=== PATIENT | male | born 1975 | race Caucasian/White ===

== ENCOUNTER 2023-06-17 09:21 | Outpatient (AMB) | payer OTHER, SELFPAY ==
[2023-06-17 09:28] VITALS: BP 132/82; PULSE 86; O2SAT 98; BMI 28.6
--- NOTE | 2023-06-17 09:28 | A.OFFPC_ITS ---
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: No Accompanied by: Self / Same As Patient Allergies amoxicillin Adverse Reaction (Unknown, Verified 06/17/23 09:49) Diarrhea Medication List - Last Reconciled 06/17/23 by Frantz Balderas PA-C albuterol sulfate 90 mcg/actuation 1 inh inhalation QID 30 days amitriptyline 75 mg (1.5 x 50 mg) PO DAILY 90 days atenolol 25 mg PO DAILY 90 days beclomethasone dipropionate 40 mcg/actuation (Qvar RediHaler) 1 inh inhalation BID 30 days blood sugar diagnostic (Bag of IceTouch Ultra Test strips) test once daily blood-glucose meter (Bag of IceTouch Ultra2 Meter) test once daily clobetasol 0.05% grams topical fluticasone propionate 50 mcg/actuation (Flonase Allergy Relief) 1 spray intranasal DAILY lancets ([email or web address] UltraSoft 2 Lancet) test once daily lorazepam 1 mg PO BID 30 days metformin 1,000 mg PO BID 90 days omeprazole 40 mg PO DAILY tramadol 50 mg PO Q6H PRN 3 days Tobacco use date assessed: 06/17/23 Dental Screening Dental Screen Date: 06/17/23 Did you have a dental visit in the last 12 months?: Yes Did you have a dental problem in the last 6 months where you did not have access to dental care?: No Was dental information given to patient?: Patient has dentist HPI Annual Exam 2 HPI0 Details Patient is a 48-year-old male here today for a routine annual physical.? Patient has a past medical history significant for stage II colon cancer (in remission) , generalized anxiety disorder, type 2 diabetes, asthma and SVT. .. Stage II colon cancer:? Is followed by oncologist at [facility], has his CEA is followed.? Has not had any recurrent disease. ?Did have colonoscopy 2020 and needed repeat in 3-5 years. Patient's most recent CT showing incidental note of a pulmonary nodule that has increased in size. PET scan was non concerning. No concerns for recurrent malignancy. Will continue his cancer surveillance with Oncology at [facility]. .. Type 2 diabetes:? Today's A1c at 8.1. He reports he has not been compliant with the use of his metformin. He is interested in 0 sent back to help with his diabetes in may be able to have better compliance. .. Acne rosacea: Followed by wholesaler and was on doxycycline which was helpful, when taken off of doxycycline his acne rosacea flared up and would like to try topical treatment. .. KATHIA:? Patient reports his anxiety has been well controlled with p.r.n. use of lorazepam. ? Also has a stressful job.? Not interested in speaking with a mental health therapist at this time. . Asthma:? Patient reports his asthma has been fairly well controlled on current maintenance inhaler, seldomly has to use his albuterol inhaler. Vaccines: Up-to-date with COVID vaccine, up-to-date with pneumonia vaccine, tetanus vaccine. Considering flu vaccine [facility] Medical History Pre-operative examination Sleep apnea Surgical History History of surgery History of colostomy Family History Father Prostate cancer Parkinson disease Lung cancer Mother Breast cancer Sister Asthma BRCA positive Social History (Updated 06/17/23 @ 09:56 by Frantz Balderas PA-C) Housing: House Alcohol intake: current Alcohol intake frequency: 0-2 drinks per day Alcohol type: beer Patient Tobacco Use Status: Never used Tobacco e-Cigarette/Vaping Use: Never Used Second Hand Smoke Exposure: No service: No Current occupational status: employed Current occupation: [employer] Current occupational exposures/hazards: No Cognitive needs: No Hearing needs: No Vision needs: Yes Questionnaire PHQ-9 Over the last 2 weeks, how often have you been bothered by any of the following problems? 1. Little interest or pleasure in doing things: not at all 2. Feeling down, depressed, or hopeless: not at all 3. Trouble falling or staying asleep, or sleeping too much: not at all 4. Feeling tired or having little energy: not at all 5. Poor appetite or overeating: not at all 6. Feeling bad about yourself - or that you are a failure or have let yourself or your family down: not at all 7. Trouble concentrating on things, such as reading the newspaper or watching television: not at all 8. Moving or speaking so slowly that other people could have noticed. Or the opposite - being so fidgety or restless that you have been moving around a lot more than usual: not at all 9. Thoughts that you would be better off or of hurting yourself in some way: not at all Total score: 0 Depression Screening Interpretation: Negative Depression Screening Done: Yes [id number] - PHQ-9 Billing: Yes Source: Developed by Drs. Anuj Tapia, Nae Bain, Yousif Barber and colleagues, with an educational erin from [employer]. Thrive Questionnaire Date Thrive assessed: 04/24/22 I am a: Patient What is your living situation today?: I have a steady place to live Within the past 12 months, did the food you bought not last and you didn't have the money to get more?: Never true Within the past 12 months, did you worry whether your food would run out before you got money to buy more?: Never true Do you have trouble paying for medicines?: No Do you have trouble getting transportation to medical appointments?: No Do you have trouble paying your heating and electricity bill?: No Do you have trouble taking care of your child, family member or friend?: No Do you have trouble with day-to-day activities such as bathing, preparing meals, shopping, managing finances, etc.?: No Are you currently unemployed and looking for a job?: No Are you interested in more education?: No Please select the resources that you would like help with: None Currently or been in a relationship where the following occur: no concerns reported AUDIT C Alcohol Use Questionnaire (AUDIT-C) 1. How often do you have a drink containing alcohol?: Never 3. How often do you have six or more drinks on one occasion?: Never Total Score: 0 KATHIA-7 AMB Questionnaire KATHIA-7 Date KATHIA - 7 assessed: 06/17/23 Feeling nervous, anxious, or on edge: 0 = Not at all Not being able to stop or control worryin = Not at all Worrying too much about different things: 0 = Not at all Trouble relaxin = Not at all Being so restless that it is hard to sit still: 0 = Not at all Becoming easily annoyed or irritable: 0 = Not at all Feeling afraid as if something awful might happen: 0 = Not at all Total KATHIA-7 score (0-4 normal; 5-9 mild; 10-14 moderate; 15-21 severe): 0 Source: Developed by Drs. Anuj Tapia, Nae Bain, Yousif Barber and colleagues, with an educational erin from [employer]. KATHIA-7 Assessment Billing KATHIA-7 Assessment Tool: KATHIA-7 Assessment 29610 ACT Questionnaire In the past 4 weeks, how much of the time did your asthma keep you from getting as much done at work, school or at home?: None of the time During the past 4 weeks, how often have you had shortness of breath?: Not at all During the past 4 weeks, how often did your asthma symptoms wake you up at night or earlier than usual in the morning?: Not at all During the past 4 weeks, how often have you had to use your rescue inhaler or nebulizer medication?: Not at all How would you rate your asthma control during the past 4 weeks?: Completely controlled ACT Interpretation: Negative Score: 25 Review of Systems Const Denies body aches, Denies chills, Denies excessive sweating, Denies fatigue, Denies fever(s) and Denies headache(s) Eyes Denies blurry vision ENT Denies dysphagia, Denies vertigo, Denies dizziness, Denies headache(s), Denies hearing loss and Denies tinnitus Card Denies chest pain, Denies chest pain with activity, Denies syncope, Denies irregular heart rhythm and Denies dyspnea Resp Denies chest congestion, Denies cough, Denies hemoptysis, Denies dyspnea and Denies wheezing GI Denies abdominal pain, Denies melena, Denies hematochezia, Denies coffee ground emesis, Denies dysphagia, Denies diarrhea, Denies nausea and Denies vomiting Denies difficulty urinating, Denies dysuria, Denies urinary frequency, Denies urinary hesitancy and Denies urinary urgency Musc Denies arthralgias, Denies limited range of motion, Denies muscle cramps and Denies muscle weakness Skin/Breast Denies rash and Denies skin ulcer Neuro Denies Abnormal speech present, Denies confusion, Denies vertigo, Denies dizziness, Denies syncope, Denies headache(s), Denies memory loss and Denies seizure-like activity Psych Denies anxiety, Denies confusion, Denies depression, Denies memory loss, Denies panic attacks and Denies paranoia Endo Denies excessive sweating, Denies fatigue, Denies flushing, Denies polydipsia and Denies polyuria Aller/Immun Denies wheezing Physical exam (Primary Care) Vital Signs: Last Vital Signs Pulse 86 06/17/23 09:28 BP 132/82 06/17/23 09:28 Pulse Ox 98 06/17/23 09:28 Oxygen Delivery Method Room Air 06/17/23 09:28 BMI result Body Mass Index 28.6 Tobacco/Smoking Status: Tobacco use Status Tobacco use date assessed 06/17/23 06/17/23 09:32 Patient Tobacco Use Status Never used Tobacco 06/17/23 09:56 Tobacco use type 04/24/22 08:35 e-Cigarette/Vaping Use Never Used 06/17/23 09:56 PHQ-9: PHQ-9 Score PHQ-9: Total score 0 06/17/23 10:20 Depression Screening Interpretation: Negative Thrive Assessment: Date of Thrive Assessment Date Thrive assessed 04/24/22 06/17/23 09:32 Currently or been in a relationship where the following occur: no concerns reported Const General: cooperative, comfortable, no acute distress, alert and awake; No confusion Orientation/consciousness: oriented to person, oriented to place, patient oriented x3 and No confusion HENMD Head: Yes normocephalic Head images: 2 1. NOTED ACNE AND SOME ERYTHEMA OVER CHEEKS Ears: external ears normal and TM's normal bilaterally Face and sinus: No sinus tenderness Mouth: Normal oral and palatal mucosa present and tongue normal Teeth and gingiva: dentition normal and gingiva normal Throat: Yes posterior oropharynx normal, Yes tonsils normal and Yes uvula midline Eyes Conjunctivae: conjunctivae normal Sclerae: sclerae normal Pupils: Equal, round and reactive pupils present EOM: EOMs intact bilaterally Direct Ophthalmoscopy: No no photophobia Neck Neck: Yes no lymphadenopathy, No tender and Yes no JVD Thyroid: Thyroid normal Carotids: no bruits Chest Chest palpation & inspection: no tenderness Resp Effort & Inspection: normal respiratory effort, no audible wheezes, not labored and no stridor Auscultation: no crackles, no rales, no rhonchi and no wheezes Cardio Jugular venous distension: no JVD Rate: regular rate, not bradycardic and not tachycardic Rhythm: regular rhythm Bruits: no carotid bruits Peripheral pulses: Peripheral pulses 2+ throughout GI Inspection: Yes normal to inspection, No abdominal wall ecchymosis and No visible herniation Palpation (GI): Soft to palpation, nontender, no guarding, not rigid and No hepatosplenomegaly present Auscultation: normoactive bowel sounds General: Yes no CVA tenderness Back/Spine/Pelvis Back: no CVA tenderness and No back tenderness Cervical Spine: cervical ROM normal Thoracic/Lumbar Spine: thoracic and lumbar spine normal to inspection, straight leg raise negative bilaterally, No thoraco-lumbar ROM limited and No lumbar spinal tenderness Skin Lesions: no lesions Rashes: no rashes Wounds: no wounds Neuro General: oriented to person, oriented to place, patient oriented x3, CN's II-XI intact bilaterally and No confusion Cranial nerves: Yes Equal, round and reactive pupils present and Yes Normal accommodation reflex present Cognition (Neuro): normal cognition Speech: No Abnormal speech present Gait exam (Neuro): Normal gait present Motor exam (neuro): 5/5 motor strength present throughout Extrem Right upper extremity: full ROM; no cyanosis Left upper extremity: full ROM; no cyanosis Right lower extremity: no edema Left lower extremity: no edema Psych Appearance: grossly normal Mental Status: mental status grossly normal Affect: normal affect Attitude: cooperative Thought process: Normal thought process present Results AMB Hemoglobin A1c 2 AMB Hemoglobin A1c 8.1 % Last Edit by Natalie Saldivar on 06/17/23 10:20 Results Reviewed Results Reviewed: Laboratory Last Values Hgb A1c (Clinic) 8.1 % (4.0-6.0) H 06/17/23 10:19 Assessment and Plan Assessment & Plan (1) Annual physical exam: Code(s): Z00.00 - Encounter for general adult medical examination without abnormal findings (2) Type 2 diabetes mellitus: Code(s): E11.9 - Type 2 diabetes mellitus without complications Qualifiers: Diabetes mellitus complication status: without complication Diabetes mellitus jail insulin use: with watcher [employer] long goods use Qualified Code(s): E11.9 - Type 2 diabetes mellitus without complications; Z79.4 - long term care phlebotomist (current) use of insulin Plan: Patient's type 2 diabetes suboptimally controlled today's A1c at 8.1. He reports he is not compliant with taking metformin. He is interested in trying Ozempic for better compliance and Alessandro benefit of weight loss. Goal A1c to be below 7.0 (3) H/O colon cancer, stage II: Code(s): Z85.038 - Personal history of other malignant neoplasm of large intestine Plan: Patient followed by Oncology And currently is in remission. Of note recent CT showing pulmonary nodule that is increased in size. Patient's most recent PET scan did show some uptake in a pulmonary nodule though was thought to be inflammatory and not malignant. (4) KATHIA (generalized anxiety disorder): Code(s): F41.1 - Generalized anxiety disorder Plan: Patient's anxiety has been fairly well controlled with current dose of TCA and p.r.n. use lorazepam (5) Asthma: Code(s): J45.909 - Unspecified asthma, uncomplicated Qualifiers: Asthma complication type: uncomplicated Asthma persistence: i ntermittent Asthma severity: mild Qualified Code(s): J45.20 - Mild intermittent asthma, uncomplicated Plan: Patient reports his asthma has been well controlled as of late. Has not had to use his QVAR inhaler much. Does use his albuterol inhaler on a p.r.n. basis for cough and wheeze. He otherwise denies any nighttime awakenings with asthma symptoms or recent asthma exacerbations. (6) MDD (major depressive disorder), recurrent episode, mild: Code(s): F33.0 - Major depressive disorder, recurrent, mild Plan: Depression seems to be in remission. PHQ-9 score negative. Continues on mental health medications and feels stable from a mental health point of view. Orders: Orders 2 AMB Hemoglobin A1c 06/17/23 E11.9 - Type 2 diabetes mellitus without complications Lipid Panel 06/17/23 E11.9 - Type 2 diabetes mellitus without complications, Z79.4 - [facility]PC (current) use of insulin Microalbumin, Random (w Creat) 06/17/23 E11.9 - Type 2 diabetes mellitus without complications, Z79.4 - long term care phlebotomist (current) use of insulin Medications: New 2 metronidazole 1% (Metrogel) 1 appl topical DAILY 30 days 60 grams 1RF L71.9 - Rosacea, unspecified semaglutide (Ozempic) for 4 weeks 0.25 mg (0.368 mL) subcut QWEEK 4 weeks 3 mL 3RF E11.9 - Type 2 diabetes mellitus without complications, Z79.4 - long term care phlebotomist (current) use of insulin Refilled 2 tramadol 50 mg PO Q6H 3 days PRN 12 tabs 0RF pain M54.50 - Low back pain, unspecified lorazepam 1 mg PO BID 30 days 60 tabs 3RF anxiety F41.1 - Generalized anxiety disorder Coding Level of Care Code Est Pt Prev Care 40-64y(62933) Diagnoses Annual physical exam Z00.00 Type 2 diabetes mellitus without complication, with long-term current use of insulin E11.9; Z79.4 Diabetes mellitus complication status: without complication Diabetes mellitus watcher [employer] goods insulin use: with watcher automat long goods use H/O colon cancer, stage II Z85.038 KATHIA (generalized anxiety disorder) F41.1 Mild intermittent asthma without complication J45.20 Asthma complication type: uncomplicated Asthma persistence: intermittent Asthma severity: mild MDD (major depressive disorder), recurrent episode, mild F33.0 Additional Codes KATHIA-7 Assessment Billing - KATHIA-7 Assessment Tool: KATHIA-7 Assessment [id number] ([id number])
== END 2023-06-17 10:17 | disposition home or self-care (01) ==
PROVIDERS: Visit Provider Physician Assistant
DX: E11.9 Type 2 diabetes mellitus without complications (principal)
CPT/HCPCS: 83036; 99396

== ENCOUNTER 2023-11-27 15:10 | Outpatient (AMB) | payer OTHER, SELFPAY ==
--- NOTE | 2023-11-27 15:32 | A.OFFPC_ITS ---
Vital Signs 11/27/23 15:43 Height 6 ft 3 in Weight 222 lb 3 oz BMI 27.8 BP 132/94 H Blood Pressure Location Lt brachial Position Sitting Pulse 90 Pulse Source Pulse Oximeter Pulse Oximetry (%) 98 Oxygen Delivery Method Room Air Intake Visit Reasons: DMII follow up Intake Note: Pt needs FMLA form to be complete before surgery. 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 Accompanied by: Self / Same As Patient Allergies amoxicillin Adverse Reaction (Unknown, Verified 11/27/23 15:55) Diarrhea Medication List - Last Reconciled 11/27/23 by Frantz Balderas PA-C albuterol sulfate 90 mcg/actuation 1 inh inhalation QID 30 days amitriptyline 75 mg (1.5 x 50 mg) PO DAILY 90 days atenolol 25 mg PO DAILY 90 days beclomethasone dipropionate 40 mcg/actuation (Qvar RediHaler) 1 inh inhalation BID 30 days blood sugar diagnostic (ScandlinesTouch Ultra Test strips) test once daily blood-glucose meter (ScandlinesTouch Ultra2 Meter) test once daily clobetasol 0.05% grams topical gabapentin 300 mg PO TID lancets ([employer] UltraSoft 2 Lancet) test once daily lorazepam 1 mg PO BID 30 days metronidazole 1% (Metrogel) 1 appl topical DAILY 30 days omeprazole 40 mg PO DAILY semaglutide (Ozempic) 0.5 mg (0.736 mL) subcut QWEEK 4 weeks tamsulosin 0.4 mg PO DAILY tramadol 50 mg PO Q6H PRN 3 days Tobacco use date assessed: 11/27/23 Dental Screening Dental Screen Date: 11/27/23 Did you have a dental visit in the last 12 months?: Yes Did you have a dental problem in the last 6 months where you did not have access to dental care?: No Was dental information given to patient?: Patient has dentist HPI DMII follow up HPI Details Patient is a 48-year-old male here today for a follow-up visit.? Patient has a past medical history significant for metastatic colon cancer, , generalized anxiety disorder, type 2 diabetes, asthma and SVT. .. Metastatic colon cancer:? Is followed by oncologist at [facility], has his CEA is followed.? ?Did have colonoscopy 2020 and needed repeat in 3-5 years. Patient's most recent CT showing incidental note of a pulmonary nodule that has increased in size. PET scan did show some uptake in the right lower lung nodule. --> Underwent biopsy in September of 2023 a nd did show recurrence of colon cancer in the right lower lung lobe. Is due for lung resection surgery on 12/05/2023. .. Type 2 diabetes:? Was started on Ozempic and has been able to lose weight. Has discontinue metformin due to compliance issues. A1c much improved at 6.8 from 8.1.. .. .. KATHIA:? Patient reports his anxiety has been well controlled with p.r.n. use of lorazepam. ? Also has a stressful job.? Not interested in speaking with a mental health therapist at this time. . Asthma:? Patient reports his asthma has been fairly well controlled on current maintenance inhaler, seldomly has to use his albuterol inhaler. [facility] Medical History Pre-operative examination Sleep apnea Surgical History History of surgery History of colostomy Family History Father Prostate cancer Parkinson disease Lung cancer Mother Breast cancer Sister Asthma BRCA positive Social History Housing: House Alcohol intake: current Alcohol intake frequency: 0-2 drinks per day Alcohol type: beer Patient Tobacco Use Status: Never used Tobacco e-Cigarette/Vaping Use: Never Used Second Hand Smoke Exposure: No service: No Current occupational status: employed Current occupation: [employer] Current occupational exposures/hazards: No Cognitive needs: No Hearing needs: No Vision needs: Yes Questionnaire PHQ-9 Over the last 2 weeks, how often have you been bothered by any of the following problems? 94541 - PHQ-9 Billing: Patient declined-do not bill Source: Developed by Drs. Anuj Tapia, Nae Bain, Yousif Barber and colleagues, with an educational erin from [employer]. Thrive Questionnaire Date Thrive assessed: 11/27/23 I am a: Patient What is your living situation today?: I have a steady place to live Within the past 12 months, did the food you bought not last and you didn't have the money to get more?: Never true Within the past 12 months, did you worry whether your food would run out before you got money to buy more?: Never true Do you have trouble paying for medicines?: No Do you have trouble getting transportation to medical appointments?: No Do you have trouble paying your heating and electricity bill?: No Do you have trouble taking care of your child, family member or friend?: No Do you have trouble with day-to-day activities such as bathing, preparing meals, shopping, managing finances, etc.?: No Are you currently unemployed and looking for a job?: No Are you interested in more education?: No Please select the resources that you would like help with: None Currently or been in a relationship where the following occur: no concerns reported THRIVE Score: 0 AUDIT C Alcohol Use Questionnaire (AUDIT-C) 1. How often do you have a drink containing alcohol?: Monthly or less 2. How many drinks containing alcohol do you have on a typical day when you are drinking?: 1 or 2 3. How often do you have six or more drinks on one occasion?: Never Total Score: 1 KATHIA-7 AMB Questionnaire KATHIA-7 Date KATHIA - 7 assessed: 11/27/23 Source: Developed by Drs. Anuj Tapia, Nae Bain, Yousif Barber and colleagues, with an educational erin from [employer]. KATHIA-7 Assessment Billing KATHIA-7 Assessment Tool: pt declined-do not bill ACT Questionnaire In the past 4 weeks, how much of the time did your asthma keep you from getting as much done at work, school or at home?: None of the time During the past 4 weeks, how often have you had shortness of breath?: Not at all During the past 4 weeks, how often did your asthma symptoms wake you up at night or earlier than usual in the morning?: Not at all During the past 4 weeks, how often have you had to use your rescue inhaler or nebulizer medication?: Not at all How would you rate your asthma control during the past 4 weeks?: Completely controlled ACT Interpretation: Negative Score: 25 Review of Systems Const Denies headache(s) Eyes Denies loss of vision ENT Denies vertigo, Denies dizziness, Denies headache(s) and Denies sore throat Card Denies chest pain, Denies leg edema and Denies lightheadedness Resp Denies cough, Denies hemoptysis and Denies wheezing GI Denies abdominal pain, Denies melena, Denies constipation, Denies diarrhea and Denies vomiting Denies dysuria, Denies urinary frequency and Denies urinary urgency Musc Denies arthralgias, Denies joint swelling, Denies numbness and Denies tingling Neuro Denies Abnormal speech present, Denies behavioral changes, Denies vertigo, Denies dizziness, Denies headache(s), Denies loss of vision, Denies memory loss, Denies numbness and Denies tingling Psych Denies anxiety, Denies behavioral changes, Denies depression, Denies memory loss and Denies panic attacks Raymon/Lymph Denies easy bleeding and Denies easy bruising Aller/Immun Denies wheezing Physical exam (Primary Care) Vital Signs: Last Vital Signs Pulse 90 11/27/23 15:43 BP 132/94 H 11/27/23 15:43 Pulse Ox 98 11/27/23 15:43 Oxygen Delivery Method Room Air 11/27/23 15:43 BMI result Body Mass Index 27.8 Tobacco/Smoking Status: Tobacco use Status Tobacco use date assessed 11/27/23 11/27/23 15:52 Patient Tobacco Use Status Never used Tobacco 11/27/23 15:32 Tobacco use type 04/24/22 08:35 e-Cigarette/Vaping Use Never Used 11/27/23 15:32 PHQ-9: PHQ-9 Score PHQ-9: Total score 0 11/27/23 15:32 Thrive Assessment: Date of Thrive Assessment Date Thrive assessed 11/27/23 11/27/23 15:32 Currently or been in a relationship where the following occur: no concerns reported Const General: healthy appearing, no acute distress, alert and awake Nutritional Appearance: well nourished Orientation/consciousness: oriented to person, oriented to place and oriented to time HENMT Ears: TM's normal bilaterally General nose exam: Normal nasal mucous membranes and turbinates present Eyes Conjunctivae: conjunctivae normal Sclerae: sclerae normal Pupils: Equal, round and reactive pupils present Neck Neck: Yes no lymphadenopathy and Yes no JVD Thyroid: Thyroid normal Carotids: no bruits Resp Effort & Inspection: normal respiratory effort and not tachypneic Auscultation: no crackles, no rales, no rhonchi and no wheezes Cardio Rate: regular rate Rhythm: regular rhythm Heart sounds: no murmurs and normal S1 and S2 GI Palpation (GI): Soft to palpation, nontender, no hepatomegaly and no splenomegaly Auscultation: normal bowel sounds Skin General skin exam: no rashes or lesions noted and dry skin Neuro General: oriented to person, oriented to place and oriented to time Cranial nerves: Yes Equal, round and reactive pupils present Speech: No Abnormal speech present Gait exam (Neuro): Normal gait present Motor exam (neuro): no tremor noted Extrem Right upper extremity: full ROM Left upper extremity: full ROM Right lower extremity: full ROM; no edema Left lower extremity: full ROM; no edema Psych Mental Status: mental status grossly normal Speech and movement: Normal speech and movement present Affect: normal affect Attitude: cooperative Thought process: Normal thought process present Results AMB Hemoglobin A1c AMB Hemoglobin A1c 6.8 % Last Edit by DA Joya on 11/27/23 15:58 Results Reviewed Results Reviewed: Laboratory Last Values Hgb A1c (Clinic) 6.8 % (4.0-6.0) H 11/27/23 15:31 Assessment and Plan Assessment & Plan (1) Recurrent carcinoma of colon: Code(s): C18.9 - Malignant neoplasm of colon, unspecified Plan: As per HPI patient had recurrence of his colon cancer with metastatic lesion noted in his right lower lung lobe. He is due for resection of his lung on 12/05/2023. (2) Type 2 diabetes mellitus: Code(s): E11.9 - Type 2 diabetes mellitus without complications Qualifiers: Diabetes mellitus production engineer insulin use: with production engineer use Diabetes mellitus complication status: without complication Qualified Code(s): E11.9 - Type 2 diabetes mellitus without complications; Z79.4 - project control manager (current) use of insulin Plan: Patient's type 2 diabetes now well controlled with the addition of Ozempic. Metformin has been discontinued due to compliance issues.. He reports he has been more physically active and adapting to better eating habits as well. Goal A1c to be below 7.0 (3) H/O colon cancer, stage II: Code(s): Z85.038 - Personal history of other malignant neoplasm of large intestine Plan: Patient followed by Oncology. Of note recent CT showing pulmonary nodule that is increased in size. 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 (4) KATHIA (generalized anxiety disorder): Code(s): F41.1 - Generalized anxiety disorder Plan: Patient's anxiety has been fairly well controlled with current dose of TCA and p.r.n. use lorazepam (5) Asthma: Code(s): J45.909 - Unspecified asthma, uncomplicated Qualifiers: Asthma severity: mild Asthma persistence: intermittent Asthma complication type: uncomplicated Qualified Code(s): J45.20 - Mild intermittent asthma, uncomplicated Plan: Patient reports his asthma has been well controlled as of late. Has not had to use his QVAR inhaler much. Does use his albuterol inhaler on a p.r.n. basis for cough and wheeze. He otherwise denies any nighttime awakenings with asthma symptoms or recent asthma exacerbations. (6) MDD (major depressive disorder), recurrent episode, mild: Code(s): F33.0 - Major depressive disorder, recurrent, mild Plan: Depression seems to be in remission. PHQ-9 score negative. Continues on mental health medications and feels stable from a mental health point of view. Orders: Orders Lipid Panel 11/27/23 E11.9 - Type 2 diabetes mellitus without complications, Z79.4 - project control manager (current) use of insulin AMB Hemoglobin A1c 11/27/23 E11.9 - Type 2 diabetes mellitus without complications, Z79.4 - project control manager (current) use of insulin Comprehensive [place]. Panel Fast 11/27/23 E11.9 - Type 2 diabetes mellitus without complications, Z79.4 - FDC (current) use of insulin Medications: Refilled atenolol 25 mg PO DAILY 90 days 90 tabs 1RF I47.1 - Supraventricular tachycardia omeprazole 40 mg PO DAILY 90 caps 2RF metronidazole 1% (Metrogel) 1 appl topical DAILY 30 days 60 grams 2RF L71.9 - Rosacea, unspecified lorazepam 1 mg PO BID 30 days 60 tabs 3RF anxiety F41.1 - Generalized anxiety disorder tramadol 50 mg PO Q6H 3 days PRN 12 tabs 0RF pain M54.50 - Low back pain, unspecified semaglutide (Ozempic) for 4 weeks 0.5 mg (0.736 mL) subcut QWEEK 4 weeks 3 mL 3RF E11.9 - Type 2 diabetes mellitus without complications, Z79.4 - FDC (current) use of insulin Patient Instructions: Goal: A1c to remain below 7.0 Barrier: Adherence to medication, adherence to healthy eating habits and physical activity Coding Level of Care Code Est Pt Level 4 (87513) Diagnoses Recurrent carcinoma of colon C18.9 Type 2 diabetes mellitus without complication, with long-term current use of insulin E11.9; Z79.4 Diabetes mellitus fdc insulin use: with production engineer use Diabetes mellitus complication status: without complication H/O colon cancer, stage II Z85.038 KATHIA (generalized anxiety disorder) F41.1 Mild intermittent asthma without complication J45.20 Asthma severity: mild Asthma persistence: intermittent Asthma complication type: uncomplicated MDD (major depressive disorder), recurrent episode, mild F33.0
[2023-11-27 15:43] VITALS: BP 132/94; PULSE 90; O2SAT 98; BMI 27.8
== END 2023-11-27 16:42 | disposition home or self-care (01) ==
PROVIDERS: PCP Physician Assistant; Visit Provider Physician Assistant
DX: E11.9 Type 2 diabetes mellitus without complications (principal); Z79.4 Long term (current) use of insulin
CPT/HCPCS: 83036; 99214

== ENCOUNTER 2024-06-01 14:56 | Outpatient (AMB) | payer OTHER, SELFPAY ==
[2024-06-01 15:09] VITALS: BP 150/90; PULSE 78; O2SAT 78; BMI 27.8
--- NOTE | 2024-06-01 15:09 | MHC.PC.OV ---
Vital Signs 06/01/24 15:09 Height 6 ft 3 in Weight 222 lb 4 oz BMI 27.8 BP 150/90 H Blood Pressure Location Lt brachial Position Sitting Pulse 78 Pulse Source Pulse Oximeter Pulse Oximetry (%) 78 L Oxygen Delivery Method Room Air Intake Visit Reasons: f/u DMII/ colon cancer Silk Top Hat Body Maker Required: No Accompanied by: Self / Same As Patient Allergies amoxicillin Adverse Reaction (Unknown, Verified 06/01/24 15:33) Diarrhea Medication List - Last Reconciled 06/01/24 by Frantz Balderas PA-C albuterol sulfate 90 mcg/actuation 1 inh inhalation QID 30 days amitriptyline 75 mg (1.5 x 50 mg) PO DAILY 90 days atenolol 25 mg PO DAILY 90 days beclomethasone dipropionate 40 mcg/actuation (Qvar RediHaler) 1 inh inhalation BID 30 days blood sugar diagnostic (Hickiesuch Ultra Test strips) test once daily blood-glucose meter (Hickiesuch Ultra2 Meter) test once daily clobetasol 0.05% grams topical gabapentin 300 mg PO TID lancets (Hickiesuch UltraSoft 2 Lancet) test once daily lorazepam 1 mg PO BID 30 days metronidazole 1% (Metrogel) 1 appl topical DAILY 30 days omeprazole 40 mg PO DAILY semaglutide (Ozempic) 0.5 mg (0.736 mL) subcut QWEEK 4 weeks tamsulosin 0.4 mg PO DAILY tramadol 50 mg PO Q6H PRN 3 days Tobacco use date assessed: 11/27/23 Dental Screening Dental Screen Date: 11/27/23 HPI f/u DMII/ colon cancer HPI Details Patient is a 49-year-old male here today for a follow-up visit.? Patient has a past medical history significant for metastatic colon cancer, , generalized anxiety disorder, type 2 diabetes, asthma and SVT. .. Metastatic colon cancer:? Is followed by oncologist at [facility], has his CEA is followed.? ?Did have colonoscopy 2020 and needed repeat in 3-5 years. Patient's most recent CT showing incidental note of a pulmonary nodule that has increased in size. PET scan did show some uptake in the right lower lung nodule. --> Underwent biopsy in September of 2023 and did show recurrence of colon cancer in the right lower lung lobe. Patient underwent lung resection surgery that was successful. Continues under active surveillance with his oncologist. .. Type 2 diabetes:? Was started on Ozempic and has been able to lose weight. Has discontinue metformin due to compliance issues. Today's A1c improved at 6.5. .. .. KATHIA:? Patient reports his anxiety has been well controlled with p.r.n. use of lorazepam. ? Also has a stressful job.? Not interested in speaking with a mental health therapist at this time. Insomnia--> patient continues to difficulty staying asleep. He does use amitriptyline at night which helps him get to sleep though willing he is able to sleep 3-4 hours in his up for the rest of the night. He was on Ambien in the past which offered him the ability to sleep throughout the night. . Asthma:? Patient reports his asthma has been fairly well controlled on current maintenance inhaler, does report recently since cooler weather he has experiencing wheezing. He would like to restart his QVAR maintenance inhaler.. . [facility] Medical History Pre-operative examination Sleep apnea Surgical History History of surgery History of colostomy Family History Father Prostate cancer Parkinson disease Lung cancer Mother Breast cancer Sister Asthma BRCA positive Social History Housing: House Alcohol intake: current Alcohol intake frequency: 0-2 drinks per day Alcohol type: beer Patient Tobacco Use Status: Never used Tobacco e-Cigarette/Vaping Use: Never Used Second Hand Smoke Exposure: No service: No Current occupational status: employed Current occupation: [employer] Current occupational exposures/hazards: No Cognitive needs: No Hearing needs: No Vision needs: Yes Questionnaire Thrive Questionnaire Date Thrive assessed: 11/27/23 AUDIT C Alcohol Use Questionnaire (AUDIT-C) 2. How many drinks containing alcohol do you have on a typical day when you are drinking?: 3 or 4 3. How often do you have six or more drinks on one occasion?: Weekly Total Score: 4 KATHIA-7 AMB Questionnaire KATHIA-7 Date KATHIA - 7 assessed: 11/27/23 Source: Developed by Drs. Anuj Tapia, Nae Bain, Yousif Barber and colleagues, with an educational erin from [employer]. Review of Systems Const Denies headache(s) Eyes Denies loss of vision ENT Denies vertigo, Denies dizziness, Denies headache(s) and Denies sore throat Card Denies chest pain, Denies leg edema and Denies lightheadedness Resp Denies cough, Denies hemoptysis and Denies wheezing GI Denies abdominal pain, Denies melena, Denies constipation, Denies diarrhea and Denies vomiting Denies dysuria, Denies urinary frequency and Denies urinary urgency Musc Denies arthralgias, Denies joint swelling, Denies numbness and Denies tingling Neuro Denies Abnormal speech present, Denies behavioral changes, Denies vertigo, Denies dizziness, Denies headache(s), Denies loss of vision, Denies memory loss, Denies numbness and Denies tingling Psych Denies anxiety, Denies behavioral changes, Denies depression, Denies memory loss and Denies panic attacks Raymon/Lymph Denies easy bleeding and Denies easy bruising Aller/Immun Denies wheezing Physical exam (Primary Care) Vital Signs: Last Vital Signs Pulse 78 06/01/24 15:09 BP 150/90 H 06/01/24 15:09 Pulse Ox 78 L 06/01/24 15:09 Oxygen Delivery Method Room Air 06/01/24 15:09 BMI result Body Mass Index 27.8 Tobacco/Smoking Status: Tobacco use Status Tobacco use date assessed 11/27/23 06/01/24 15:11 Patient Tobacco Use Status Never used Tobacco 06/01/24 15:11 Tobacco use type 04/24/22 08:35 e-Cigarette/Vaping Use Never Used 06/01/24 15:11 Thrive Assessment: Date of Thrive Assessment Date Thrive assessed 11/27/23 06/01/24 15:11 Const General: healthy appearing, no acute distress, alert and awake Nutritional Appearance: well nourished Orientation/consciousness: oriented to person, oriented to place and oriented to time HENMT Ears: TM's normal bilaterally General nose exam: Normal nasal mucous membranes and turbinates present Eyes Conjunctivae: conjunctivae normal Sclerae: sclerae normal Pupils: Equal, round and reactive pupils present Neck Neck: Yes no lymphadenopathy and Yes no JVD Thyroid: Thyroid normal Carotids: no bruits Resp Effort & Inspection: normal respiratory effort and not tachypneic Auscultation: no crackles, no rales, no rhonchi and no wheezes Cardio Rate: regular rate Rhythm: regular rhythm Heart sounds: no murmurs and normal S1 and S2 GI Palpation (GI): Soft to palpation, nontender, no hepatomegaly and no splenomegaly Auscultation: normal bowel sounds Skin General skin exam: no rashes or lesions noted and dry skin Neuro General: oriented to person, oriented to place and oriented to time Cranial nerves: Yes Equal, round and reactive pupils present Speech: No Abnormal speech present Gait exam (Neuro): Normal gait present Motor exam (neuro): no tremor noted Extrem Right upper extremity: full ROM Left upper extremity: full ROM Right lower extremity: full ROM; no edema Left lower extremity: full ROM; no edema Psych Mental Status: mental status grossly normal Speech and movement: Normal speech and movement present Affect: normal affect Attitude: cooperative Thought process: Normal thought process present Office Procedures Flu Questionnaire Does the patient have a severe egg allergy?: No Results AMB Hemoglobin A1c AMB Hemoglobin A1c 6.5 % Last Edit by REINALDO Grant on 06/01/24 15:45 Immunizations Fluarix Triv [id number] (PF) 45 mcg (15 mcg x 3)/0.5 mL IM syringe Performing Provider: Frantz Balderas PA-C [place] [facility] [facility] Documented (not given) by: DA Joya on 06/01/24 15:13 Reason Not Given: Patient Refused Results Reviewed Results Reviewed: Laboratory Last Values Hgb A1c (Clinic) 6.5 % (4.0-6.0) H 06/01/24 15:30 Coding Level of Care Code Est Pt Level 4 (90098) Diagnoses Type 2 diabetes mellitus without complication, with long-term current use of insulin E11.9; Z79.4 Diabetes mellitus complication status: without complication Diabetes mellitus terminal carman insulin use: with terminal carman use Insomnia, unspecified type G47.00 Insomnia type: unspecified Recurrent carcinoma of colon C18.9 Generalized anxiety disorder F41.1 Mild intermittent asthma without complication J45.20 Asthma complication type: uncomplicated Asthma persistence: intermittent Asthma severity: mild SVT (supraventricular tachycardia) I47.1 Assessment & Plan Assessment & Plan (1) Type 2 diabetes mellitus: Code(s): E11.9 - Type 2 diabetes mellitus without complications Category: Medical Qualifiers: Diabetes mellitus complication status: without complication Diabetes mellitus terminal carman insulin use: with terminal carman use Qualified Code(s): E11.9 - Type 2 diabetes mellitus without complications; Z79.4 - senior care (current) use of insulin Plan: Patient's type 2 diabetes well controlled with current medication. Today's A1c is 6.5. Will continue current dose of Ozempic which has offered him some good glycemic control.. A1c is to remain below 7.0. (2) Insomnia: Code(s): G47.00 - Insomnia, unspecified Category: Medical Qualifiers: Insomnia type: unspecified Qualified Code(s): G47.00 - Insomnia, unspecified Plan: Having difficulty staying asleep. Reports he is able to get 4 hours of sleep though is up for the rest of the night. Was on Ambien in the past with good effect. We did discuss the habit-forming nature of Ambien he does understand he will only use it on an as needed basis. (3) Recurrent carcinoma of colon: Code(s): C18.9 - Malignant neoplasm of colon, unspecified Category: Medical Plan: Patient followed [facility]. No recent recurrences of his cancer. Did have a pulmonary nodule that was recurrence of his colon cancer that was resected in 2023 (4) Generalized anxiety disorder: Code(s): F41.1 - Generalized anxiety disorder Category: Medical Plan: Patient reports his anxiety is fairly well controlled with only as needed use of his lorazepam 1 mg. (5) Asthma: Code(s): J45.909 - Unspecified asthma, uncomplicated Category: Medical Qualifiers: Asthma complication type: uncomplicated Asthma persistence: intermittent Asthma severity: mild Qualified Code(s): J45.20 - Mild intermittent asthma, uncomplicated Plan: Patient reports feeling a bit more wheezy as of late. Likely allergy related. He would like to restart his maintenance inhaler for better control of his asthma (6) SVT (supraventricular tachycardia): Code(s): I47.1 - Supraventricular tachycardia Category: Medical Plan: Patient SVT has been stable with beta-rebekah ( atenolol) Not had much reports of palpitations Orders: Orders Influenza [id number] Immunization 06/01/24 Z23 - Encounter for immunization AMB Hemoglobin A1c 06/01/24 E11.9 - Type 2 diabetes mellitus without complications, Z79.4 - oil heaterman (current) use of insulin Medications: New zolpidem 10 mg PO BEDTIME PRN 14 tabs 0RF sleep 14 days G47.00 - Insomnia, unspecified Refilled atenolol 25 mg PO DAILY 90 tabs 1RF 90 days I47.1 - Supraventricular tachycardia lorazepam 1 mg PO BID 60 tabs 3RF anxiety 30 days F41.1 - Generalized anxiety disorder omeprazole 40 mg PO DAILY 90 caps 2RF albuterol sulfate 90 mcg/actuation 1 inh inhalation QID 8.5 grams 3RF 30 days J45.20 - Mild intermittent asthma, uncomplicated amitriptyline 75 mg (1.5 x 50 mg) PO DAILY 135 tabs 2RF 90 days G47.00 - Insomnia, unspecified beclomethasone dipropionate 40 mcg/actuation (Qvar RediHaler) 1 inh inhalation BID 10.6 grams 3RF 30 days J45.20 - Mild intermittent asthma, uncomplicated tramadol 50 mg PO Q6H PRN 12 tabs 0RF pain 3 days M54.50 - Low back pain, unspecified Patient Instructions: Goal: A1c to remain below 6.5, LDL to remain below 100. Barrier: Adherence to physical activity and healthy eating habits
== END 2024-06-01 15:51 | disposition home or self-care (01) ==
LOC: HO.HMCH 14:57
PROVIDERS: PCP Physician Assistant; Visit Provider Physician Assistant
DX: E11.9 Type 2 diabetes mellitus without complications (principal); Z79.4 Long term (current) use of insulin; C18.9 Malignant neoplasm of colon, unspecified; I47.10 Supraventricular tachycardia, unspecified; G47.00 Insomnia, unspecified; F41.1 Generalized anxiety disorder; J45.20 Mild intermittent asthma, uncomplicated

== ENCOUNTER → 2024-06-01 14:56 | Outpatient (BNVA) | payer OTHER, SELFPAY | PROVIDERS: PCP Physician Assistant; Visit Provider Physician Assistant | DX: E11.9 Type 2 diabetes mellitus without complications (principal); G47.00 Insomnia, unspecified; C18.9 Malignant neoplasm of colon, unspecified; F41.1 Generalized anxiety disorder; J45.20 Mild intermittent asthma, uncomplicated; I47.10 Supraventricular tachycardia, unspecified; Z79.4 Long term (current) use of insulin; Z28.21 Immunization not carried out because of patient refusal | CPT/HCPCS: 83036; 90471 ==

== ENCOUNTER 2024-11-04 08:03 | Outpatient (AMB) | payer OTHER, SELFPAY ==
[2024-11-04 08:16] VITALS: BP 128/80; PULSE 90; O2SAT 98; BMI 28.5
--- NOTE | 2024-11-04 08:16 | A.OFFPC_ITS ---
Vital Signs 11/04/24 08:16 Height 6 ft 3 in Weight 228 lb BMI 28.5 BP 128/80 Blood Pressure Location Lt brachial Position Sitting Pulse 90 Pulse Source Pulse Oximeter Pulse Oximetry (%) 98 Oxygen Delivery Method Room Air Intake Visit Reasons: Annual Exam Allergies amoxicillin Adverse Reaction (Unknown, Verified 11/04/24 08:31) Diarrhea Medication List - Last Reconciled 11/04/24 by Frantz Balderas PA-C albuterol sulfate 90 mcg/actuation 1 inh inhalation QID 30 days amitriptyline 75 mg (1.5 x 50 mg) PO DAILY 90 days atenolol 25 mg PO DAILY 90 days beclomethasone dipropionate 40 mcg/actuation (Qvar RediHaler) 1 inh inhalation BID 30 days blood sugar diagnostic (Glarityuch Ultra Test strips) test once daily blood-glucose meter (Glarityuch Ultra2 Meter) test once daily clobetasol 0.05% grams topical gabapentin 300 mg PO TID lancets (Glarityuch UltraSoft 2 Lancet) test once daily lorazepam 1 mg PO BID 30 days metronidazole 1% (Metrogel) 1 appl topical DAILY 30 days omeprazole 40 mg PO DAILY semaglutide (Ozempic) 0.5 mg (0.736 mL) subcut QWEEK 4 weeks tamsulosin 0.4 mg PO DAILY tramadol 50 mg PO Q6H PRN 3 days zolpidem 10 mg PO BEDTIME PRN 14 days Tobacco use date assessed: 11/04/24 Dental Screening Dental Screen Date: 11/04/24 Did you have a dental visit in the last 12 months?: Yes Did you have a dental problem in the last 6 months where you did not have access to dental care?: No Was dental information given to patient?: Patient has dentist HPI Annual Exam HPI Details Patient is a 49-year-old male here today for an PE. .? Patient has a past medical history si gnificant for metastatic colon cancer, , generalized anxiety disorder, type 2 diabetes, asthma and SVT. .. Metastatic colon cancer:? Is followed by oncologist at [facility], has his CEA is followed.? ?Did have colonoscopy 2020 and needed repeat in 3-5 years. Patient's most recent CT showing incidental note of a pulmonary nodule that has increased in size. PET scan did show some uptake in the right lower lung nodule. --> Underwent biopsy in September of 2023 a nd did show recurrence of colon cancer in the right lower lung lobe. Patient underwent lung resection surgery that was successful. Continues under active surveillance with his oncologist. .. Type 2 diabetes:? He is currently treated with Ozempic, but his hemoglobin A1c remains at 7.4%, indicating suboptimal diabetes control. His LDL is controlled at 98 mg/dL, and he has fatty liver disease. He mentioned significant glucose fluctuations, particularly with spikes recorded up to 310 mg/dL using a continuous glucose monitor, indicating concerns over his glycemic management. PLAN: Plan to transition to alternative GLP 1( mounjaro) to see if we get better. Will also try to set him up for the [facility] Cassia continuous glucose monitor to better evaluate his glucose. .. .. KATHIA:? Patient reports his anxiety has been well controlled with p.r.n. use of lorazepam. ? Also has a stressful job.? Not interested in speaking with a mental health therapist at this time. Insomnia--> patient continues to difficulty staying asleep. He does use amitriptyline at night which helps him get to sleep though willing he is able to sleep 3-4 hours in his up for the rest of the night. He was on Ambien in the past which offered him the ability to sleep throughout the night. . Asthma:? Patient reports his asthma has been fairly well controlled on current maintenance inhaler, does report recently since cooler weather he has experiencing wheezing. He would like to restart his QVAR maintenance inhaler.. Vaccines: Up-to-date with COVID vaccine, up-to-date with pneumonia vaccine, tetanus vaccine. Considering flu vaccine Colorectal cancer screening: Continues to follow Oncology as he has had personal history of colon cancer [facility] Medical History Pre-operative examination Sleep apnea Surgical History History of surgery History of colostomy Family History Father Prostate cancer Parkinson disease Lung cancer Mother Breast cancer Sister Asthma BRCA positive Social History Housing: House Alcohol intake: current Alcohol intake frequency: 0-2 drinks per day Alcohol type: beer Patient Tobacco Use Status: Never used Tobacco Tobacco use type: Cigarette e-Cigarette/Vaping Use: Never Used Second Hand Smoke Exposure: No service: No Current occupational status: employed Current occupation: [employer] Current occupational exposures/hazards: No Cognitive needs: No Hearing needs: No Vision needs: Yes Questionnaire PHQ-9 Over the last 2 weeks, how often have you been bothered by any of the following problems? 1. Little interest or pleasure in doing things: not at all 2. Feeling down, depressed, or hopeless: not at all 3. Trouble falling or staying asleep, or sleeping too much: not at all 4. Feeling tired or having little energy: not at all 5. Poor appetite or overeating: not at all 6. Feeling bad about yourself - or that you are a failure or have let yourself or your family down: not at all 7. Trouble concentrating on things, such as reading the newspaper or watching television: not at all 8. Moving or speaking so slowly that other people could have noticed. Or the opposite - being so fidgety or restless that you have been moving around a lot more than usual: not at all 9. Thoughts that you would be better off or of hurting yourself in some way: not at all Total score: 0 Depression Screening Interpretation: Negative Depression Screening Done: Yes [id number] - PHQ-9 Billing: Yes Source: Developed by Drs. Anuj Tapia, Nae Bain, Yousif Barber and colleagues, with an educational erin from [facility]. Thrive Questionnaire Date Thrive assessed: 11/04/24 I am a: Patient What is your living situation today?: I have a steady place to live Within the past 12 months, did the food you bought not last and you didn't have the money to get more?: Never true Within the past 12 months, did you worry whether your food would run out before you got money to buy more?: Never true Do you have trouble paying for medicines?: No Do you have trouble getting transportation to medical appointments?: No Do you have trouble paying your heating and electricity bill?: No Do you have trouble taking care of your child, family member or friend?: No Do you have trouble with day-to-day activities such as bathing, preparing meals, shopping, managing finances, etc.?: No Are you currently unemployed and looking for a job?: No Are you interested in more education?: No Please select the resources that you would like help with: None Currently or been in a relationship where the following occur: No concerns reported THRIVE Score: 0 AUDIT C Alcohol Use Questionnaire (AUDIT-C) 1. How often do you have a drink containing alcohol?: 4 or more times a week 2. How many drinks containing alcohol do you have on a typical day when you are drinking?: 3 or 4 3. How often do you have six or more drinks on one occasion?: Monthly Total Score: 7 KATHIA-7 AMB Questionnaire KATHIA-7 Date KATHIA - 7 assessed: 11/27/23 Feeling nervous, anxious, or on edge: 1 = Several days Not being able to stop or control worryin = Not at all Worrying too much about different things: 0 = Not at all Trouble relaxin = Several days Being so restless that it is hard to sit still: 1 = Several days Becoming easily annoyed or irritable: 0 = Not at all Feeling afraid as if something awful might happen: 0 = Not at all Total KATHIA-7 score (0-4 normal; 5-9 mild; 10-14 moderate; 15-21 severe): 3 Source: Developed by Drs. Anuj Tapia, Nae Bain, Yousif Barber and colleagues, with an educational erin from [facility]. KATHIA-7 Assessment Billing KATHIA-7 Assessment Tool: KATHIA-7 Assessment [id number] Review of Systems Const Denies body aches, Denies chills, Denies excessive sweating, Denies fatigue, Denies fever(s) and Denies headache(s) Eyes Denies blurry vision ENT Denies dysphagia, Denies vertigo, Denies dizziness, Denies headache(s), Denies hearing loss and Denies tinnitus Card Denies chest pain, Denies chest pain with activity, Denies syncope, Denies irregular heart rhythm and Denies dyspnea Resp Denies chest congestion, Denies cough, Denies hemoptysis, Denies dyspnea and Denies wheezing GI Denies abdominal pain, Denies melena, Denies hematochezia, Denies coffee ground emesis, Denies dysphagia, Denies diarrhea, Denies nausea and Denies vomiting Denies difficulty urinating, Denies dysuria, Denies urinary frequency, Denies urinary hesitancy and Denies urinary urgency Musc Denies arthralgias, Denies limited range of motion, Denies muscle cramps and Denies muscle weakness Skin/Breast Denies rash and Denies skin ulcer Neuro Denies Abnormal speech present, Denies confusion, Denies vertigo, Denies dizziness, Denies syncope, Denies headache(s), Denies memory loss and Denies seizure-like activity Psych Denies anxiety, Denies confusion, Denies depression, Denies memory loss, Denies panic attacks and Denies paranoia Endo Denies excessive sweating, Denies fatigue, Denies flushing, Denies polydipsia and Denies polyuria Aller/Immun Denies wheezing Physical exam (Primary Care) Vital Signs: Last Vital Signs Pulse 90 11/04/24 08:16 BP 128/80 11/04/24 08:16 Pulse Ox 98 11/04/24 08:16 Oxygen Delivery Method Room Air 11/04/24 08:16 BMI result Body Mass Index 28.5 Tobacco/Smoking Status: Tobacco use Status Tobacco use date assessed 11/04/24 11/04/24 08:17 Patient Tobacco Use Status Never used Tobacco 11/04/24 08:17 Tobacco use type Cigarette 11/04/24 08:17 e-Cigarette/Vaping Use Never Used 11/04/24 08:17 PHQ-9: PHQ-9 Score PHQ-9: Total score 0 11/04/24 08:17 Depression Screening Interpretation: Negative Thrive Assessment: Date of Thrive Assessment Date Thrive assessed 11/04/24 11/04/24 08:17 Currently or been in a relationship where the following occur: No concerns reported Const General: cooperative, comfortable, no acute distress, alert and awake; No confusion Orientation/consciousness: oriented to person, oriented to place, patient oriented x3 and No confusion HENMT Head: Yes normocephalic Ears: external ears normal and TM's normal bilaterally Face and sinus: No sinus tenderness Mouth: Normal oral and palatal mucosa present and tongue normal Teeth and gingiva: dentition normal and gingiva normal Throat: Yes posterior oropharynx normal, Yes tonsils normal and Yes uvula midline Eyes Conjunctivae: conjunctivae normal Sclerae: sclerae normal Pupils: Equal, round and reactive pupils present EOM: EOMs intact bilaterally Direct Ophthalmoscopy: No no photophobia Neck Neck: Yes no lymphadenopathy, No tender and Yes no JVD Thyroid: Thyroid normal Carotids: no bruits Chest Chest palpation & inspection: no tenderness Resp Effort & Inspection: normal respiratory effort, no audible wheezes, not labored and no stridor Auscultation: no crackles, no rales, no rhonchi and no wheezes Cardio Jugular venous distension: no JVD Rate: regular rate, not bradycardic and not tachycardic Rhythm: regular rhythm Bruits: no carotid bruits Peripheral pulses: Peripheral pulses 2+ throughout GI Inspection: Yes normal to inspection, No abdominal wall ecchymosis and No visible herniation Palpation (GI): Soft to palpation, nontender, no guarding, not rigid and No hepatosplenomegaly present Auscultation: normoactive bowel sounds General: Yes no CVA tenderness Back/Spine/Pelvis Back: no CVA tenderness and No back tenderness Cervical Spine: cervical ROM normal Thoracic/Lumbar Spine: thoracic and lumbar spine normal to inspection, straight leg raise negative bilaterally, No thoraco-lumbar ROM limited and No lumbar spinal tenderness Skin Lesions: no lesions Rashes: no rashes Wounds: no wounds Neuro General: oriented to person, oriented to place, patient oriented x3, CN's II-XI intact bilaterally and No confusion Cranial nerves: Yes Equal, round and reactive pupils present and Yes Normal accommodation reflex present Cognition (Neuro): normal cognition Speech: No Abnormal speech present Gait exam (Neuro): Normal gait present Motor exam (neuro): 5/5 motor strength present throughout Extrem Right upper extremity: full ROM; no cyanosis Left upper extremity: full ROM; no cyanosis Right lower extremity: no edema Left lower extremity: no edema Psych Appearance: grossly normal Mental Status: mental status grossly normal Affect: normal affect Attitude: cooperative Thought process: Normal thought process present Coding Level of Care Code Est Pt Prev Care 40-64y(39986) Diagnoses Annual physical exam Z00.00 Type 2 diabetes mellitus without complication, with long-term current use of insulin E11.9; Z79.4 Diabetes mellitus detention insulin use: with intermediate manager use Diabetes mellitus complication status: without complication Insomnia, unspecified type G47.00 Insomnia type: unspecified Recurrent carcinoma of colon C18.9 Generalized anxiety disorder F41.1 Mild intermittent asthma without complication J45.20 Asthma severity: mild Asthma persistence: intermittent Asthma complication type: uncomplicated SVT (supraventricular tachycardia) I47.1 Hammer toe of left foot M20.42 MDD (major depressive disorder), recurrent episode, mild F33.0 Additional Codes KATHIA-7 Assessment Billing - KATHIA-7 Assessment Tool: KATHIA-7 Assessment 13231 ([id number]) PHQ-9 - 09957 - PHQ-9 Billing: Yes ([id number]) Assessment & Plan Assessment & Plan (1) Annual physical exam: Code(s): Z00.00 - Encounter for general adult medical examination without abnormal findings Category: Medical Plan: As per HPI (2) Type 2 diabetes mellitus: Code(s): E11.9 - Type 2 diabetes mellitus without complications Category: Medical Qualifiers: Diabetes mellitus detention insulin use: with detention use Diabetes mellitus complication status: without complication Qualified Code(s): E11.9 - Type 2 diabetes mellitus without complications; Z79.4 - [facility] (current) use of insulin Plan: Patient's type 2 diabetes is suboptimally controlled with most recent A1c is 7.4. He does note some elevated blood sugars at times now using a continues glucose monitor freestyle Cassia 3. Will try to set him up with his own freestyle Cassia 3. Will transition to alternative GLP 1 for better glycemic control. Goal A1c is to be below 7.0 (3) Insomnia: Code(s): G47.00 - Insomnia, unspecified Category: Medical Qualifiers: Insomnia type: unspecified Qualified Code(s): G47.00 - Insomnia, unspecified Plan: Continues to use Ambien on an as needed basis We did discuss the habit-forming nature of Ambien he does understand he will only use it on an as needed basis. (4) Recurrent carcinoma of colon: Code(s): C18.9 - Malignant neoplasm of colon, unspecified Category: Medical Plan: Patient followed [facility]. No recent recurrences of his cancer. Did have a pulmonary nodule that was recurrence of his colon cancer that was resected in 2023 Recent CEA within normal range. (5) Generalized anxiety disorder: Code(s): F41.1 - Generalized anxiety disorder Category: Medical Plan: Patient reports his anxiety is fairly well controlled with only as needed use of his lorazepam 1 mg. (6) Asthma: Code(s): J45.909 - Unspecified asthma, uncomplicated Category: Medical Qualifiers: Asthma severity: mild Asthma persistence: intermittent Asthma complication type: uncomplicated Qualified Code(s): J45.20 - Mild intermittent asthma, uncomplicated Plan: Patient reports feeling a bit more wheezy as of late. Likely allergy related. He would like to restart his maintenance inhaler for better control of his asthma (7) SVT (supraventricular tachycardia): Code(s): I47.1 - Supraventricular tachycardia Category: Medical Plan: Patient SVT has been stable with beta-rebekah ( atenolol) Not had much reports of palpitations (8) Hammer toe of left foot: Code(s): M20.42 - Other hammer toe(s) (acquired), left foot Category: Medical Plan: Continue conservative management with gabapentin for nighttime discomfort. Reinforce proper footwear use, and review podiatry recommendations periodically, defer surgical consideration unless symptoms significantly worsen. Now followed by photo finish photographer and has a fairly severe left hammertoe. Does use gabapentin 300 mg at night which does help reduce his toe pain. (9) MDD (major depressive disorder), recurrent episode, mild: Code(s): F33.0 - Major depressive disorder, recurrent, mild Category: Medical Plan: Patient's PHQ-9 score 0, Patient reports his depression is fairly well stable. Not interested in a mental health therapist at this time. Orders: Orders AMB Hemoglobin A1c Today Z13.9 - Encounter for screening, unspecified Microalbumin, Random (w Creat) Today E11.9 - Type 2 diabetes mellitus without complications, Z79.4 - intermediate card tender (current) use of insulin Complete Blood Count no Diff Today E11.9 - Type 2 diabetes mellitus without complications, Z79.4 - intermediate card tender (current) use of insulin Comprehensive [place]. Panel Fast Today E11.9 - Type 2 diabetes mellitus without complications, Z79.4 - intermediate card tender (current) use of insulin Lipid Panel Today E11.9 - Type 2 diabetes mellitus without complications, Z79.4 - intermediate card tender (current) use of insulin Medications: New tirzepatide (Mounjaro) for 4 weeks 2.5 mg (0.5 mL) subcut QWEEK 4 weeks 2 mL 0RF E11.9 - Type 2 diabetes mellitus without complications, Z79.4 - intermediate card tender (current) use of insulin blood-glucose sensor (FreeStyle Cassia 3 Sensor device) As directed 1 ea 6RF E11.9 - Type 2 diabetes mellitus without complications, Z79.4 - [facility] (current) use of insulin Changed From gabapentin 300 mg PO BID M20.42 - Other hammer toe(s) (acquired), left foot To gabapentin 300 mg PO BID 90 days 180 caps 1RF M20.42 - Other hammer toe(s) (acquired), left foot Refilled zolpidem 10 mg PO BEDTIME 14 days PRN 14 tabs 0RF sleep G47.00 - Insomnia, unspecified lorazepam 1 mg PO BID 30 days 60 tabs 3RF anxiety F41.1 - Generalized anxiety disorder amitriptyline 75 mg (1.5 x 50 mg) PO DAILY 90 days 135 tabs 2RF G47.00 - Insomnia, unspecified albuterol sulfate 90 mcg/actuation 1 inh inhalation QID 30 days 8.5 grams 3RF J45.20 - Mild intermittent asthma, uncomplicated beclomethasone dipropionate 40 mcg/actuation (Qvar RediHaler) 1 inh inhalation BID 30 days 10.6 grams 3RF J45.20 - Mild intermittent asthma, uncomplicated omeprazole 40 mg PO DAILY 90 caps 2RF E11.9 - Type 2 diabetes mellitus without complications, Z79.4 - [facility] (current) use of insulin metronidazole 1% (Metrogel) 1 appl topical DAILY 30 days 60 grams 2RF L71.9 - Rosacea, unspecified atenolol 25 mg PO DAILY 90 days 90 tabs 1RF I47.1 - Supraventricular tachycardia On Hold semaglutide (Ozempic) Hold Comment: Doctor's Order 0.5 mg (0.736 mL) subcut QWEEK 4 weeks 3 mL 3RF E11.9 - Type 2 diabetes mellitus without complications, Z79.4 - [facility] (current) use of insulin
== END 2024-11-04 08:52 | disposition home or self-care (01) ==
LOC: HO.HMCH 08:04
PROVIDERS: PCP Physician Assistant; Visit Provider Physician Assistant
DX: Z00.00 Encounter for general adult medical examination without abnormal findings (principal); E11.9 Type 2 diabetes mellitus without complications; Z79.4 Long term (current) use of insulin; C18.9 Malignant neoplasm of colon, unspecified; I47.10 Supraventricular tachycardia, unspecified; F33.0 Major depressive disorder, recurrent, mild; G47.00 Insomnia, unspecified; F41.1 Generalized anxiety disorder; J45.20 Mild intermittent asthma, uncomplicated; M20.42 Other hammer toe(s) (acquired), left foot

== ENCOUNTER → 2024-11-04 08:03 | Outpatient (BNVA) | payer OTHER, SELFPAY | PROVIDERS: PCP Physician Assistant; Visit Provider Physician Assistant | DX: Z00.00 Encounter for general adult medical examination without abnormal findings (principal); E11.9 Type 2 diabetes mellitus without complications; G47.00 Insomnia, unspecified; C18.9 Malignant neoplasm of colon, unspecified; F41.1 Generalized anxiety disorder; J45.20 Mild intermittent asthma, uncomplicated; I47.10 Supraventricular tachycardia, unspecified; M20.42 Other hammer toe(s) (acquired), left foot; F33.0 Major depressive disorder, recurrent, mild; Z79.4 Long term (current) use of insulin | CPT/HCPCS: 96127 ==

== ENCOUNTER 2025-05-11 08:07 | Outpatient (AMB) | payer OTHER, SELFPAY ==
--- NOTE | 2025-05-11 08:11 | MHC.PC.OV ---
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: Not Required per policy Accompanied by: Self / Same As Patient Allergies amoxicillin Adverse Reaction (Unknown, Verified 05/11/25 08:34) Diarrhea Medication List - Last Reconciled 05/11/25 by Frantz Balderas PA-C albuterol sulfate 90 mcg/actuation 1 inh inhalation QID 30 days amitriptyline 75 mg (1.5 x 50 mg) PO DAILY 90 days atenolol 25 mg PO DAILY 90 days beclomethasone dipropionate 40 mcg/actuation (Qvar RediHaler) 1 inh inhalation BID 30 days blood sugar diagnostic (SqueakeeTouch Ultra Test strips) test once daily blood-glucose meter (HealthDataInsightsuch Ultra2 Meter) test once daily clobetasol 0.05% grams topical gabapentin 300 mg PO BID 90 days lancets (SqueakeeTouch UltraSoft 2 Lancet) test once daily lorazepam 1 mg PO BID 30 days metronidazole 1% (Metrogel) 1 appl topical DAILY 30 days omeprazole 40 mg PO DAILY tamsulosin 0.4 mg PO DAILY tirzepatide (Mounjaro) 7.5 mg (0.5 mL) subcut QWEEK 4 weeks tramadol 50 mg PO Q6H PRN 3 days zolpidem 10 mg PO BEDTIME PRN 14 days Tobacco use date assessed: 05/11/25 Dental Screening Dental Screen Date: 11/04/24 HPI f/u DMII HPI Details Patient is a 50-year-old male here today for follow-up visit .? Patient has a past medical history significant for metastatic colon cancer, , generalized anxiety disorder, type 2 diabetes, asthma and SVT. Concern--> He reports experiencing lower back pain, particularly when sitting for extended periods, such as during flights. He manages this discomfort by taking half a dose of tramadol before flights longer than an hour. The patient describes muscle spasms in the area of previous surgical intervention, specifically between the ribs and near the ostomy site. These spasms occur intermittently and are painful, lasting about 15 to 20 seconds. He has been advised to perform pre-emptive stretching and consider magnesium supplementation to alleviate these symptoms .. Metastatic colon cancer s/p colostomy:? Is followed by oncologist at [facility], has his CEA is followed.? ?Did have colonoscopy 2020 and needed repeat in 3-5 years. Patient's most recent CT showing incidental note of a pulmonary nodule that has increased in size. PET scan did show some uptake in the right lower lung nodule. --> Underwent biopsy in September of 2023 and did show recurrence of colon cancer in the right lower lung lobe. Patient underwent lung resection surgery that was successful. Continues under active surveillance with his oncologist. He has an upcoming colonoscopy and CT scan of the abdomen this fall .. Type 2 diabetes:? He is currently treated with trace appetite 7.5 mg, A1c appropriate today is 6.2. His LDL is controlled at 98 mg/dL, and he has fatty liver disease. He has been able to lose 8 lb over the last 6 months. .. .. KATHIA:? Patient reports his anxiety has been well controlled with p.r.n. use of lorazepam. ? Also has a stressful job.? Not interested in speaking with a mental health therapist at this time. Insomnia--> patient continues to difficulty staying asleep. He does use amitriptyline at night which helps him get to sleep though willing he is able to sleep 3-4 hours in his up for the rest of the night. He was on Ambien in the past which offered him the ability to sleep throughout the night. . Asthma:? Patient reports his asthma has been fairly well controlled on current maintenance inhaler, does report recently since cooler weather he has experiencing wheezing. He would like to restart his QVAR maintenance inhaler. [facility] Medical History Pre-operative examination Sleep apnea Surgical History History of surgery History of colostomy Family History Father Prostate cancer Parkinson disease Lung cancer Mother Breast cancer Sister Asthma BRCA positive Social History Housing: House Alcohol intake: current Alcohol intake frequency: 0-2 drinks per day Alcohol type: beer Patient Tobacco Use Status: Never used Tobacco Tobacco use type: Cigarette e-Cigarette/Vaping Use: Never Used Second Hand Smoke Exposure: No service: No Current occupational status: employed Current occupation: [employer] Current occupational exposures/hazards: No Cognitive needs: No Hearing needs: No Vision needs: Yes Questionnaire Thrive Questionnaire Date Thrive assessed: 10/28/24 I am a: Patient What is your living situation today?: I have a steady place to live Within the past 12 months, did the food you bought not last and you didn't have the money to get more?: Never true Within the past 12 months, did you worry whether your food would run out before you got money to buy more?: Never true Do you have trouble paying for medicines?: No Do you have trouble getting transportation to medical appointments?: No Do you have trouble paying your heating and electricity bill?: No Do you have trouble taking care of your child, family member or friend?: No Do you have trouble with day-to-day activities such as bathing, preparing meals, shopping, managing finances, etc.?: No Are you currently unemployed and looking for a job?: No Are you interested in more education?: No Please select the resources that you would like help with: None Currently or been in a relationship where the following occur: No concerns reported THRIVE Score: 0 KATHIA-7 AMB Questionnaire KATHIA-7 Date KATHIA - 7 assessed: 05/11/25 Feeling nervous, anxious, or on edge: 2 = More than half the days Not being able to stop or control worryin = Not at all Worrying too much about different things: 0 = Not at all Trouble relaxin = Nearly every day Being so restless that it is hard to sit still: 0 = Not at all Becoming easily annoyed or irritable: 1 = Several days Feeling afraid as if something awful might happen: 0 = Not at all Total KATHIA-7 score (0-4 normal; 5-9 mild; 10-14 moderate; 15-21 severe): 6 Source: Developed by Drs. Anuj L. WillieNae benitez, Yousif Barber and colleagues, with an educational erin from [employer]. KATHIA-7 Assessment Billing KATHIA-7 Assessment Tool: KATHIA-7 Assessment 83173 Review of Systems Const Denies headache(s) Eyes Denies loss of vision ENT Denies vertigo, Denies dizziness, Denies headache(s) and Denies sore throat Card Denies chest pain, Denies leg edema and Denies lightheadedness Resp Denies cough, Denies hemoptysis and Denies wheezing GI Denies abdominal pain, Denies melena, Denies constipation, Denies diarrhea and Denies vomiting Denies dysuria, Denies urinary frequency and Denies urinary urgency Musc Denies arthralgias, Denies joint swelling, Denies numbness and Denies tingling Neuro Denies Abnormal speech present, Denies behavioral changes, Denies vertigo, Denies dizziness, Denies headache(s), Denies loss of vision, Denies memory loss, Denies numbness and Denies tingling Psych Denies anxiety, Denies behavioral changes, Denies depression, Denies memory loss and Denies panic attacks Raymon/Lymph Denies easy bleeding and Denies easy bruising Aller/Immun Denies wheezing Physical exam (Primary Care) Vital Signs: Last Vital Signs Temp 97.3 F 05/11/25 08:12 Pulse 88 05/11/25 08:12 BP 130/74 05/11/25 08:12 Pulse Ox 97 05/11/25 08:12 Oxygen Delivery Method Room Air 05/11/25 08:12 BMI result Body Mass Index 27.5 Tobacco/Smoking Status: Tobacco use Status Tobacco use date assessed 05/11/25 05/11/25 08:21 Patient Tobacco Use Status Never used Tobacco 05/11/25 08:21 Tobacco use type Cigarette 05/11/25 08:21 e-Cigarette/Vaping Use Never Used 05/11/25 08:21 Thrive Assessment: Date of Thrive Assessment Date Thrive assessed 10/28/24 05/11/25 08:21 Currently or been in a relationship where the following occur: No concerns reported Const General: healthy appearing, no acute distress, alert and awake Nutritional Appearance: well nourished Orientation/consciousness: oriented to person, oriented to place and oriented to time HENMT Ears: TM's normal bilaterally General nose exam: Normal nasal mucous membranes and turbinates present Eyes Conjunctivae: conjunctivae normal Sclerae: sclerae normal Pupils: Equal, round and reactive pupils present Neck Neck: Yes no lymphadenopathy and Yes no JVD Thyroid: Thyroid normal Carotids: no bruits Resp Effort & Inspection: normal respiratory effort and not tachypneic Auscultation: no crackles, no rales, no rhonchi and no wheezes Cardio Rate: regular rate Rhythm: regular rhythm Heart sounds: no murmurs and normal S1 and S2 GI Palpation (GI): Soft to palpation, nontender, no hepatomegaly and no splenomegaly Auscultation: normal bowel sounds Skin General skin exam: no rashes or lesions noted and dry skin Neuro General: oriented to person, oriented to place and oriented to time Cranial nerves: Yes Equal, round and reactive pupils present Speech: No Abnormal speech present Gait exam (Neuro): Normal gait present Motor exam (neuro): no tremor noted Extrem Right upper extremity: full ROM Left upper extremity: full ROM Right lower extremity: full ROM; no edema Left lower extremity: full ROM; no edema Psych Mental Status: mental status grossly normal Speech and movement: Normal speech and movement present Affect: normal affect Attitude: cooperative Thought process: Normal thought process present Results AMB Hemoglobin A1c AMB Hemoglobin A1c 6.2 % Last Edit by REINALDO Grant on 05/11/25 08:25 Results Reviewed Results Reviewed: Laboratory Last Values Hgb A1c (Clinic) 6.2 % (4.0-6.0) H 05/11/25 08:10 Coding Level of Care Code Est Pt Level 4 (65092) Diagnoses Type 2 diabetes mellitus without complication, with long-term current use of insulin E11.9; Z79.4 Diabetes mellitus press tender long goods insulin use: with press tender long goods use Diabetes mellitus complication status: without complication Recurrent carcinoma of colon C18.9 Generalized anxiety disorder F41.1 Mild intermittent asthma without complication J45.20 Asthma severity: mild Asthma persistence: intermittent Asthma complication type: uncomplicated MDD (major depressive disorder), recurrent episode, mild F33.0 Additional Codes KATHIA-7 Assessment Billing - KATHIA-7 Assessment Tool: KATHIA-7 Assessment 44350 ([id number]) Assessment & Plan Assessment & Plan (1) Type 2 diabetes mellitus: Code(s): E11.9 - Type 2 diabetes mellitus without complications Category: Medical Qualifiers: Diabetes mellitus alf insulin use: with press tender long goods use Diabetes mellitus complication status: without complication Qualified Code(s): E11.9 - Type 2 diabetes mellitus without complications; Z79.4 - residential (current) use of insulin Plan: Patient's type 2 diabetes is is now well controlled with A1c today is 6.2. Will continue his GLP 1 at current dose. He does note some elevated blood sugars at times now using a continues glucose monitor freestyle Cassia 3. Goal A1c is to remain below 7.0 (2) Recurrent carcinoma of colon: Code(s): C18.9 - Malignant neoplasm of colon, unspecified Category: Medical Plan: Patient followed [facility]. No recent recurrences of his cancer. Did have a pulmonary nodule that was recurrence of his colon cancer that was resected in 2023 Recent CEA within normal range. He has upcoming colonoscopy this fall 2024 (3) Generalized anxiety disorder: Code(s): F41.1 - Generalized anxiety disorder Category: Medical Plan: Patient reports his anxiety is fairly well controlled with only as needed use of his lorazepam 1 mg. (4) Asthma: Code(s): J45.909 - Unspecified asthma, uncomplicated Category: Medical Qualifiers: Asthma severity: mild Asthma persistence: intermittent Asthma complication type: uncomplicated Qualified Code(s): J45.20 - Mild intermittent asthma, uncomplicated Plan: Patient reports his asthma has been well controlled lately. (5) MDD (major depressive disorder), recurrent episode, mild: Code(s): F33.0 - Major depressive disorder, recurrent, mild Category: Medical Plan: Patient's PHQ-9 score 0, Patient reports his depression is fairly well stable. Not interested in a mental health therapist at this time. Orders: Orders AMB Hemoglobin A1c Today E11.9 - Type 2 diabetes mellitus without complications, Z79.4 - residential (current) use of insulin Medications: Refilled lorazepam 1 mg PO BID 60 tabs 3RF anxiety 30 days F41.1 - Generalized anxiety disorder atenolol 25 mg PO DAILY 90 tabs 1RF 90 days I47.1 - Supraventricular tachycardia amitriptyline 75 mg (1.5 x 50 mg) PO DAILY 135 tabs 2RF 90 days G47.00 - Insomnia, unspecified omeprazole 40 mg PO DAILY 90 caps 2RF E11.9 - Type 2 diabetes mellitus without complications, Z79.4 - local company intermodal truck driver (current) use of insulin tramadol 50 mg PO Q6H PRN 12 tabs 1RF pain 3 days M54.50 - Low back pain, unspecified Patient Instructions: Goal: A1c to remain below 7.0, LDL to be below 100 Barriers: Adherence to physical activity and healthy eating habits
[2025-05-11 08:12] VITALS: BP 130/74; PULSE 88; TEMP 36.3; O2SAT 97; BMI 27.5
== END 2025-05-11 08:50 | disposition home or self-care (01) ==
LOC: HO.HMCH 08:08
PROVIDERS: PCP Physician Assistant; Visit Provider Physician Assistant
DX: E11.9 Type 2 diabetes mellitus without complications (principal); Z79.4 Long term (current) use of insulin; C18.9 Malignant neoplasm of colon, unspecified; F41.1 Generalized anxiety disorder; J45.20 Mild intermittent asthma, uncomplicated; F33.0 Major depressive disorder, recurrent, mild

== ENCOUNTER → 2025-05-11 08:07 | Outpatient (BNVA) | payer OTHER, SELFPAY | PROVIDERS: PCP Physician Assistant; Visit Provider Physician Assistant | DX: E11.9 Type 2 diabetes mellitus without complications (principal); M54.50 Low back pain, unspecified; F41.1 Generalized anxiety disorder; J45.909 Unspecified asthma, uncomplicated; G47.00 Insomnia, unspecified; C18.9 Malignant neoplasm of colon, unspecified; J45.20 Mild intermittent asthma, uncomplicated; F33.0 Major depressive disorder, recurrent, mild; Z79.891 Long term (current) use of opiate analgesic | CPT/HCPCS: 83036; 96127 ==